=== PATIENT | female | born 1995 | race Caucasian/White ===

== ENCOUNTER 2022-02-23 12:02 | Outpatient (CLI) | payer OTHER ==
[2022-02-23 13:12] LABS: BUN/CREATININE RATIO 19 (0-10)
[2022-02-23 13:53] LABS: RED BLOOD COUNT 3.58 M/UL (4.00-5.10); WHITE BLOOD COUNT 10.5 K/UL (4.5-11.0)
== END 2022-02-23 18:45 | disposition other institution (70) ==
LOC: GENOP 12:02
PROVIDERS: Obstetrics & Gynecology
DX: O16.3 Unspecified maternal hypertension, third trimester (principal); Z3A.30 30 weeks gestation of pregnancy
CPT/HCPCS: 36415; 80053; 83615; 84112; 84550; 85025; 85384; 85610; 85730; J0360; J0702; J1100; J3475